=== PATIENT | male | born 1970 | race African-American/Black ===

== ENCOUNTER 2018-03-25 16:26 | Inpatient (IN) | payer MEDICAID, OTHER ==
[~2018-03-25] VITALS: Ht 182.9 cm; Wt 93.0 kg
[~2018-03-25 16:26] MED LIST: HYDROCHLOROTHIAZIDE; LISINOPRIL; NORVASC
[2018-03-25] MEDS ORDERED: AMLODIPINE 10MG TABLET PO ONE (18:15)
[2018-03-25 19:09] LABS: BASOPHILS % 0.6 % (0.0-2.0); CHLORIDE 104 mEq/L (98-107); EOSINOPHILS % 1.6 % (0.0-5.0); HEMATOCRIT. 41.6 % (42.0-52.0); HEMOGLOBIN. 14.2 g/dL (14.0-18.0); LYMPHOCYTES % 22.6 % (20.0-50.0); MEAN CORPUSCULAR HEMOGLOBIN 32.6 pg (28.0-32.0); MEAN CORPUSCULAR VOLUME 95.4 fL (80.0-94.0); MEAN PLATELET VOLUME 8.7 fl (7.4-10.4); MONOCYTES % 6.8 % (2.0-8.0); NEUTROPHILS % 68.4 % (40.0-76.0); PLATELET 291 x1000/uL (130-400); RED BLOOD CELL COUNT 4.36 mill/uL (4.7-6.1); RED CELL DISTRIBUTION WIDTH 12.7 % (11.6-14.6)
[2018-03-25] MEDS ORDERED: HYDRALAZINE 20MG/ML VIAL IV ONE (20:30)
[2018-03-25] MEDS ORDERED: IBUPROFEN 600MG TABLET PO ONE (21:00)
[2018-03-26] VITALS (10 sets, daily range): BP systolic 139–174; BP diastolic 88–117
[2018-03-26] MEDS: CLONIDINE 0.2MG TABLET PO PRN ×2 (05:35→13:50)
[2018-03-26] MEDS ORDERED: NIFEDIPINE XL 60MG TAB PO SCH ×2 (09:15→21:00)
[2018-03-26] MEDS ORDERED: ONDANSETRON HCL 4MG/2ML INJ IV PRN (09:15)
[2018-03-26] MEDS ORDERED: ENOXAPARIN 40MG/0.4ML SYR SUBCUT SCH (09:15)
[2018-03-26] MEDS ORDERED: ACETAMINOPHEN 325MG TABLET PO PRN (09:15)
[2018-03-26 10:57] LABS: BASOPHILS % 0.5 % (0.0-2.0); EOSINOPHILS % 1.2 % (0.0-5.0); HEMATOCRIT. 38.4 % (42.0-52.0); HEMOGLOBIN. 13.1 g/dL (14.0-18.0); LYMPHOCYTES % 20.7 % (20.0-50.0); MEAN CORPUSCULAR HEMOGLOBIN 32.5 pg (28.0-32.0); MEAN CORPUSCULAR VOLUME 94.7 fL (80.0-94.0); MONOCYTES % 7.5 % (2.0-8.0); NEUTROPHILS % 70.1 % (40.0-76.0); PLATELET 261 x1000/uL (130-400); RED BLOOD CELL COUNT 4.05 mill/uL (4.7-6.1); RED CELL DISTRIBUTION WIDTH 12.6 % (11.6-14.6)
[2018-03-26] MEDS ORDERED: HYDRALAZINE HCL 100MG TABLET PO SCH ×2 (12:00→14:00)
[2018-03-26] MEDS ORDERED: POTASSIUM CHLORIDE 20MEQ TABLET SR PO SCH (12:30)
== END 2018-03-26 18:45 | disposition home or self-care (01) | DRG 199 ==
LOC: ER 17:16 → 5EST 20:39 → ENRESERV 03-26 04:55
PROVIDERS: ADMIT Internal Medicine; ATTEND Internal Medicine
DX: I16.0 Hypertensive urgency (principal); N18.3 Chronic kidney disease, stage 3 (moderate); L97.329 Non-pressure chronic ulcer of left ankle with unspecified severity; E87.6 Hypokalemia; I12.9 Hypertensive chronic kidney disease with stage 1 through stage 4 chronic kidney disease, or unspecified chronic kidney disease; L97.919 Non-pressure chronic ulcer of unspecified part of right lower leg with unspecified severity; R73.03 Prediabetes; Z86.73 Personal history of transient ischemic attack (TIA), and cerebral infarction without residual deficits
CPT/HCPCS: 36415; 71045; 80048; 80061; 83036; 84443; 93005; 93306; 93922; 96374; 99291; J0360; J1650

== ENCOUNTER 2018-04-13 06:44 | Inpatient (IN) | payer MEDICAID, OTHER ==
[~2018-04-13] VITALS: Ht 182.9 cm; Wt 93.0 kg
[2018-04-13 08:32] LABS: BASOPHILS % 0.6 % (0.0-2.0); EOSINOPHILS % 1.4 % (0.0-5.0); HEMATOCRIT. 37.9 % (42.0-52.0); HEMOGLOBIN. 13.2 g/dL (14.0-18.0); LYMPHOCYTES % 20.9 % (20.0-50.0); MEAN CORPUSCULAR HEMOGLOBIN 32.9 pg (28.0-32.0); MEAN CORPUSCULAR VOLUME 94.3 fL (80.0-94.0); MEAN PLATELET VOLUME 7.6 fl (7.4-10.4); MONOCYTES % 10.4 % (2.0-8.0); NEUTROPHILS % 66.7 % (40.0-76.0); PLATELET 318 x1000/uL (130-400); RED BLOOD CELL COUNT 4.02 mill/uL (4.7-6.1); RED CELL DISTRIBUTION WIDTH 12.9 % (11.6-14.6)
[2018-04-13 08:34] LABS: CHLORIDE 101 mEq/L (98-107)
[2018-04-13] MEDS ORDERED: MORPHINE SULFATE 4 MG/ML CPJ (NOT FOR IM USE) IV ONE (09:00)
[2018-04-13] MEDS ORDERED: ASPIRIN 325MG EC TABLET PO ONE (09:00)
[2018-04-13] MEDS ORDERED: HYDRALAZINE 20MG/ML VIAL IV ONE (09:45)
[2018-04-13] MEDS ORDERED: HYDROMORPHONE HCL/PF 2MG/ML CPJ IV PRN (14:15)
[2018-04-13] MEDS ORDERED: AMLODIPINE 10MG TABLET PO NR (14:45)
[2018-04-13] MEDS ORDERED: CLONIDINE 0.1MG TABLET PO NR (16:30)
[2018-04-13] MEDS ORDERED: CLONIDINE 0.1MG TABLET PO PRN (17:15)
[2018-04-13] MEDS ORDERED: ONDANSETRON HCL 4MG/2ML INJ IV PRN (17:15)
[2018-04-13] MEDS ORDERED: ACETAMINOPHEN 325MG TABLET PO PRN (17:15)
[2018-04-13] MEDS ORDERED: GUAIFENESIN 200MG/10ML SUGAR FREE UDC PO PRN (17:15)
[2018-04-13] MEDS ORDERED: KETOROLAC 30MG/ML VIAL IV PRN (17:30)
[2018-04-13] MEDS ORDERED: HYDRALAZINE 20MG/ML VIAL IV PRN (22:12)
[2018-04-13] MEDS: HYDROMORPHONE HCL/PF 2MG/ML CPJ IV PRN (22:56)
[2018-04-13 23:26] VITALS: BP 177/103
[2018-04-14] MEDS: CLONIDINE 0.1MG TABLET PO SCH ×4 (00:26→22:23)
[2018-04-14] MEDS: NIFEDIPINE XL 60MG TAB PO SCH ×2 (00:26→08:39)
[2018-04-14] MEDS ORDERED: [UNRECOGNIZED DRUG - OTHER] PO (01:32)
[2018-04-14] MEDS ORDERED: LOSARTAN PO (01:32)
[2018-04-14] MEDS ORDERED: [UNRECOGNIZED DRUG - OTHER] PO (01:32)
[2018-04-14 04:00] VITALS: BP 146/89
[2018-04-14] MEDS: HYDRALAZINE HCL 100MG TABLET PO SCH ×2 (06:17→14:19)
[2018-04-14] MEDS: SODIUM CHLORIDE 0.9% INJ 3ML FLUSH IVF SCH ×3 (06:20→21:03)
[2018-04-14] MEDS: HYDROMORPHONE HCL/PF 2MG/ML CPJ IV PRN ×3 (06:20→21:03)
[2018-04-14] MEDS: OMEPRAZOLE 20MG CAPSULE EXTENDED RELEASE PO SCH ×2 (06:20→20:47)
[2018-04-14 08:00] VITALS: BP 145/88
[2018-04-14] MEDS: ASPIRIN 81MG EC TABLET PO SCH (08:39)
[2018-04-14] MEDS: AMLODIPINE 5MG TABLET PO SCH ×2 (08:39→20:47)
[2018-04-14] MEDS ORDERED: CLONIDINE 0.2MG TABLET PO PRN (09:59)
[2018-04-14] MEDS ORDERED: LIDOCAINE HCL 1% 10 MG/ML 10ML VIAL INL NR (11:00)
[2018-04-14 12:00] VITALS: BP 145/45
[2018-04-14 12:29] LABS: BASOPHILS % 0.3 % (0.0-2.0); EOSINOPHILS % 1.1 % (0.0-5.0); HEMATOCRIT. 35.5 % (42.0-52.0); HEMOGLOBIN. 12.3 g/dL (14.0-18.0); LYMPHOCYTES % 17.4 % (20.0-50.0); MEAN CORPUSCULAR HEMOGLOBIN 32.6 pg (28.0-32.0); MEAN CORPUSCULAR VOLUME 94.2 fL (80.0-94.0); MONOCYTES % 10.5 % (2.0-8.0); NEUTROPHILS % 70.7 % (40.0-76.0); PLATELET 304 x1000/uL (130-400); RED BLOOD CELL COUNT 3.77 mill/uL (4.7-6.1)
[2018-04-14] MEDS ORDERED: POTASSIUM CHLORIDE 20MEQ TABLET SR PO NR (14:00)
[2018-04-14 15:47] VITALS: BP 133/84
[2018-04-14 15:48] LABS: CLARITY URINE CLEAR (CLEAR); COLOR URINE YELLOW (YELLOW); KETONES URINE NEGATIVE (NEGATIVE); LEUKOCYTE ESTERASE URINE NEGATIVE (NEGATIVE); NITRITE URINE NEGATIVE (NEGATIVE); OCCULT BLOOD URINE NEGATIVE (NEGATIVE); PH URINE 5.5 (4.5-8.0); PROTEIN URINE 1+ (NEGATIVE); SPECIFIC GRAVITY URINE 1.021 (1.005-1.030); UROBILINOGEN URINE 0.2 E.U./dL (0.2-1.0)
[2018-04-14] MEDS: LOSARTAN POTASSIUM 100 MG TABLET PO SCH (15:50)
[2018-04-14 16:00] LABS: *AMPHETAMINES SCREEN URINE NEGATIVE (NEGATIVE); *BARBITURATES SCREEN URINE NEGATIVE (NEGATIVE); *BENZODIAZEPINES SCREEN URINE NEGATIVE (NEGATIVE); *COCAINE SCREEN URINE NEGATIVE (NEGATIVE); CANNABINOID URINE SCREEN NEGATIVE (NEGATIVE); METHADONE URINE SCREEN NEGATIVE (NEGATIVE); OPIATES URINE SCREEN PRESUMTIVE POSITIVE (NEGATIVE); PHENCYCLIDINE URINE SCREEN NEGATIVE (NEGATIVE)
[2018-04-14 20:30] VITALS: BP 134/67
[2018-04-15 00:42] VITALS: BP 150/90
[2018-04-15 04:00] VITALS: BP 146/92
[2018-04-15] MEDS: HYDROMORPHONE HCL/PF 2MG/ML CPJ IV PRN ×2 (04:49→09:37)
[2018-04-15] MEDS: SODIUM CHLORIDE 0.9% INJ 3ML FLUSH IVF SCH ×2 (05:59→13:13)
[2018-04-15] MEDS: CLONIDINE 0.1MG TABLET PO SCH ×2 (06:01→13:13)
[2018-04-15] MEDS: OMEPRAZOLE 20MG CAPSULE EXTENDED RELEASE PO SCH (06:33)
[2018-04-15 07:44] VITALS: BP 144/94
[2018-04-15] MEDS: AMLODIPINE 5MG TABLET PO SCH (08:06)
[2018-04-15] MEDS: ASPIRIN 81MG EC TABLET PO SCH (08:06)
[2018-04-15] MEDS: LOSARTAN POTASSIUM 100 MG TABLET PO SCH (08:06)
[2018-04-15 09:06] LABS: BASOPHILS % 0.4 % (0.0-2.0); EOSINOPHILS % 1.6 % (0.0-5.0); HEMATOCRIT. 36.5 % (42.0-52.0); HEMOGLOBIN. 12.4 g/dL (14.0-18.0); LYMPHOCYTES % 23.5 % (20.0-50.0); MEAN CORPUSCULAR HEMOGLOBIN 32.4 pg (28.0-32.0); MEAN CORPUSCULAR VOLUME 95.8 fL (80.0-94.0); MEAN PLATELET VOLUME 8.1 fl (7.4-10.4); MONOCYTES % 10.2 % (2.0-8.0); NEUTROPHILS % 64.3 % (40.0-76.0); PLATELET 288 x1000/uL (130-400); RED BLOOD CELL COUNT 3.81 mill/uL (4.7-6.1); RED CELL DISTRIBUTION WIDTH 13.1 % (11.6-14.6)
[2018-04-15 12:00] VITALS: BP 153/90
[2018-04-15] MEDS ORDERED: POTASSIUM CHLORIDE 20MEQ TABLET SR PO SCH (12:00)
[2018-04-15 15:50] VITALS: BP 140/85
[2018-04-15 15:59] VITALS: BP 140/85
[2018-04-17 09:10] LABS: COMPLEMENT C3 160 mg/dL (82-167)
[2018-04-17 15:10] LABS: ANA IFA Negative (.); ATYPICAL P-ANCA <1:20 titer (Neg:<1:20); CYTOPLASMIC C-ANCA <1:20 titer (Neg:<1:20); PERINUCLEAR P-ANCA <1:20 titer (Neg:<1:20)
[2018-04-18 14:11] LABS: ANTI-MYELOPEROXIDASE AB < 9.0 U/mL (0.0-9.0); ANTI-PROTEINASE 3 ABS < 3.5 U/mL (0.0-3.5)
== END 2018-04-15 17:34 | disposition home or self-care (01) | DRG 364 ==
LOC: ER 06:44 → 6WST 09:23 → ENRESERV 20:50
PROVIDERS: ADMIT Internal Medicine Nephrology; ATTEND Internal Medicine Nephrology
PROC: 0JBP0ZZ Excision of Left Lower Leg Subcutaneous Tissue and Fascia, Open Approach (ICD-10-PCS; principal; 2018-04-14)
PROC: 0KBW0ZZ Excision of Left Foot Muscle, Open Approach (ICD-10-PCS; 2018-04-14)
DX: L97.529 Non-pressure chronic ulcer of other part of left foot with unspecified severity (principal); N17.9 Acute kidney failure, unspecified; I13.10 Hypertensive heart and chronic kidney disease without heart failure, with stage 1 through stage 4 chronic kidney disease, or unspecified chronic kidney disease; I83.025 Varicose veins of left lower extremity with ulcer other part of foot; I16.0 Hypertensive urgency; E87.6 Hypokalemia; F12.90 Cannabis use, unspecified, uncomplicated; I87.2 Venous insufficiency (chronic) (peripheral); N18.9 Chronic kidney disease, unspecified; I87.8 Other specified disorders of veins; M20.42 Other hammer toe(s) (acquired), left foot; M20.41 Other hammer toe(s) (acquired), right foot; F17.210 Nicotine dependence, cigarettes, uncomplicated; I73.9 Peripheral vascular disease, unspecified; K21.9 Gastro-esophageal reflux disease without esophagitis; Z82.49 Family history of ischemic heart disease and other diseases of the circulatory system; Z86.73 Personal history of transient ischemic attack (TIA), and cerebral infarction without residual deficits; Z83.3 Family history of diabetes mellitus; Z87.11 Personal history of peptic ulcer disease; Z88.8 Allergy status to other drugs, medicaments and biological substances; Z91.011 Allergy to milk products
CPT/HCPCS: 36415; 71045; 76770; 80048; 80305; 83520; 83880; 83970; 84484; 85651; 86140; 86160; 86256; 93005; 93923; 96374; 96375; 97162; 99291; J0360; J1170; J2270; J3490

== ENCOUNTER 2018-06-19 02:11 | Inpatient (IN) | payer MEDICAID ==
[~2018-06-19] VITALS: Ht 188 cm; Wt 93.0 kg
[~2018-06-19 02:11] MED LIST changes: -HYDROCHLOROTHIAZIDE; -LISINOPRIL; +LOSARTAN PO; -NORVASC; +[UNRECOGNIZED DRUG - OTHER] PO; +[UNRECOGNIZED DRUG - OTHER] PO
[2018-06-19] MEDS ORDERED: MORPHINE SULFATE 4 MG/ML CPJ (NOT FOR IM USE) IV ONE (04:00)
[2018-06-19] MEDS ORDERED: ONDANSETRON HCL 4MG/2ML INJ IV ONE (04:00)
[2018-06-19 04:14] LABS: CLARITY URINE CLEAR (CLEAR); COLOR URINE YELLOW (YELLOW); KETONES URINE NEGATIVE (NEGATIVE); LEUKOCYTE ESTERASE URINE NEGATIVE (NEGATIVE); NITRITE URINE NEGATIVE (NEGATIVE); OCCULT BLOOD URINE NEGATIVE (NEGATIVE); PROTEIN URINE NEGATIVE (NEGATIVE)
[2018-06-19] MEDS ORDERED: HYDROMORPHONE HCL/PF 2MG/ML CPJ IV ONE (04:15)
[2018-06-19 04:17] LABS: CHLORIDE 101 mEq/L (98-107)
[2018-06-19 04:22] LABS: BASOPHILS % 0.4 % (0.0-2.0); EOSINOPHILS % 1.2 % (0.0-5.0); HEMOGLOBIN. 13.9 g/dL (14.0-18.0); LYMPHOCYTES % 17.5 % (20.0-50.0); MEAN CORPUSCULAR HEMOGLOBIN 33.3 pg (28.0-32.0); MEAN CORPUSCULAR VOLUME 93.7 fL (80.0-94.0); MEAN PLATELET VOLUME 7.7 fl (7.4-10.4); MONOCYTES % 9.8 % (2.0-8.0); NEUTROPHILS % 71.1 % (40.0-76.0); PLATELET 338 x1000/uL (130-400); RED BLOOD CELL COUNT 4.16 mill/uL (4.7-6.1); RED CELL DISTRIBUTION WIDTH 13.4 % (11.6-14.6)
[2018-06-19] MEDS ORDERED: VANCOMYCIN 1 G PREMIX 200 ML IV STA (05:42)
[2018-06-19] MEDS ORDERED: CLONIDINE 0.1MG TABLET PO ONE (07:00)
[2018-06-19 08:36] VITALS: BP 173/114
[2018-06-19] MEDS ORDERED: CLON0.1T14 MT (09:41)
[2018-06-19] MEDS ORDERED: CLONIDINE 0.1MG TABLET PO SCH (09:45)
[2018-06-19] MEDS ORDERED: METOPROLOL TARTRATE 25MG TABLET PO SCH (09:45)
[2018-06-19] MEDS ORDERED: AMLODIPINE 10MG TABLET PO SCH (09:45)
[2018-06-19] MEDS ORDERED: POTASSIUM CHLORIDE 20MEQ/PACKET PO SCH (09:45)
[2018-06-19 10:05] VITALS: BP 173/115
[2018-06-19 10:18] VITALS: BP_SYST 160; BP_SYST 173; BP_DIAS 114; BP_DIAS 99
[2018-06-19 11:11] LABS: ETHANOL BLOOD < 10 mg/dL
[2018-06-19 11:14] LABS: LDL CHOLESTEROL 140 mg/dL (5-100)
[2018-06-19 11:15] LABS: HDL CHOLESTEROL 55 mg/dL (40-59)
[2018-06-19 11:41] LABS: *AMPHETAMINES SCREEN URINE NEGATIVE (NEGATIVE); CANNABINOID URINE SCREEN NEGATIVE (NEGATIVE); OPIATES URINE SCREEN PRESUMTIVE POSITIVE (NEGATIVE); PHENCYCLIDINE URINE SCREEN NEGATIVE (NEGATIVE)
[2018-06-19 11:42] LABS: *BARBITURATES SCREEN URINE NEGATIVE (NEGATIVE); *BENZODIAZEPINES SCREEN URINE NEGATIVE (NEGATIVE); *COCAINE SCREEN URINE NEGATIVE (NEGATIVE); METHADONE URINE SCREEN NEGATIVE (NEGATIVE)
[2018-06-19 12:00] VITALS: BP 162/104
[2018-06-19] MEDS ORDERED: HYDRALAZINE HCL 50MG TABLET PO SCH (14:00)
[2018-06-19] MEDS ORDERED: CLONIDINE 0.2MG TABLET PO SCH (15:00)
[2018-06-19 16:00] VITALS: BP 169/107
== END 2018-06-19 17:12 | disposition home or self-care (01) | DRG 380 ==
LOC: ER 02:11 → 6EST 06:00 → ENRESERV 07:42
PROVIDERS: ADMIT Internal Medicine; ATTEND Internal Medicine
DX: L97.529 Non-pressure chronic ulcer of other part of left foot with unspecified severity (principal); E87.6 Hypokalemia; I12.9 Hypertensive chronic kidney disease with stage 1 through stage 4 chronic kidney disease, or unspecified chronic kidney disease; N18.9 Chronic kidney disease, unspecified; I87.8 Other specified disorders of veins; Z88.9 Allergy status to unspecified drugs, medicaments and biological substances; Z91.011 Allergy to milk products
CPT/HCPCS: 36415; 73630; 80061; 80305; 80320; 83036; 83605; 96374; 99285; J1170; J2270; J2405; J3370; G0480

== ENCOUNTER 2018-07-20 03:49 | Inpatient (IN) | payer MEDICAID ==
[~2018-07-20] VITALS: Ht 180.3 cm; Wt 93.4 kg
[~2018-07-20 03:49] MED LIST changes: +CLON0.1T14 MT
[2018-07-20] MEDS ORDERED: KETOROLAC 30MG/ML VIAL IV ONE ×2 (06:15→07:15)
[2018-07-20 06:34] LABS: BASOPHILS % 0.8 % (0.0-2.0); EOSINOPHILS % 1.3 % (0.0-5.0); HEMATOCRIT. 36.3 % (42.0-52.0); HEMOGLOBIN. 12.9 g/dL (14.0-18.0); LYMPHOCYTES % 19.8 % (20.0-50.0); MEAN CORPUSCULAR HEMOGLOBIN 32.9 pg (28.0-32.0); MEAN CORPUSCULAR VOLUME 92.4 fL (80.0-94.0); MEAN PLATELET VOLUME 7.6 fl (7.4-10.4); MONOCYTES % 9.4 % (2.0-8.0); NEUTROPHILS % 68.7 % (40.0-76.0); PLATELET 303 x1000/uL (130-400); RED BLOOD CELL COUNT 3.93 mill/uL (4.7-6.1); RED CELL DISTRIBUTION WIDTH 12.6 % (11.6-14.6)
[2018-07-20 06:39] LABS: CHLORIDE 103 mEq/L (98-107)
[2018-07-20 06:41] LABS: PROTHROMBIN TIME 10.3 sec (9.6-11.0)
[2018-07-20 06:43] LABS: CLARITY URINE CLEAR (CLEAR); COLOR URINE YELLOW (YELLOW); KETONES URINE NEGATIVE (NEGATIVE); LEUKOCYTE ESTERASE URINE NEGATIVE (NEGATIVE); NITRITE URINE NEGATIVE (NEGATIVE); OCCULT BLOOD URINE NEGATIVE (NEGATIVE); PROTEIN URINE TRACE (NEGATIVE); SPECIFIC GRAVITY URINE 1.017 (1.005-1.030)
[2018-07-20] MEDS ORDERED: POTASSIUM CHLORIDE 20MEQ TABLET SR PO ONE (07:00)
[2018-07-20] MEDS ORDERED: KCL 20MEQ/100ML PREMIX 100 ML IV ONE (07:00)
[2018-07-20] MEDS ORDERED: ONDANSETRON HCL 4MG/2ML INJ IV PRN (08:30)
[2018-07-20] MEDS ORDERED: DOCUSATE SODIUM 100MG CAPSULE PO PRN (08:30)
[2018-07-20] MEDS ORDERED: ACETAMINOPHEN 325MG TABLET PO PRN (08:30)
[2018-07-20] MEDS ORDERED: GUAIFENESIN 200MG/10ML SUGAR FREE UDC PO PRN (08:30)
[2018-07-20] MEDS ORDERED: IPRATROPIUM/ALBUTEROL 0.5-3(2.5)MG/3ML NEB INH PRN (08:30)
[2018-07-20] MEDS ORDERED: MAGNESIUM/ALUMINUM HYDROXIDE/SIMETHICONE 30ML UDC PO PRN (08:30)
[2018-07-20 08:45] LABS: ETHANOL BLOOD < 10 mg/dL
[2018-07-20 08:48] LABS: LDL CHOLESTEROL 125 mg/dL (5-100)
[2018-07-20 08:50] LABS: HDL CHOLESTEROL 46 mg/dL (40-59)
[2018-07-20] MEDS: AMLODIPINE 10MG TABLET PO SCH (09:00)
[2018-07-20] MEDS: ENOXAPARIN 40MG/0.4ML SYR SUBCUT SCH (10:00)
[2018-07-20] MEDS ORDERED: KCL 20MEQ/100ML PREMIX 100 ML IV NR (10:04)
[2018-07-20] MEDS: METOPROLOL TARTRATE 25MG TABLET PO SCH ×2 (12:55→20:37)
[2018-07-20] MEDS ORDERED: MINOXIDIL 10MG TABLET PO NR (13:37)
[2018-07-20 13:56] LABS: *AMPHETAMINES SCREEN URINE NEGATIVE (NEGATIVE); *BARBITURATES SCREEN URINE NEGATIVE (NEGATIVE); *BENZODIAZEPINES SCREEN URINE NEGATIVE (NEGATIVE); *COCAINE SCREEN URINE NEGATIVE (NEGATIVE); CANNABINOID URINE SCREEN NEGATIVE (NEGATIVE); PHENCYCLIDINE URINE SCREEN NEGATIVE (NEGATIVE)
[2018-07-20 13:57] LABS: METHADONE URINE SCREEN NEGATIVE (NEGATIVE); OPIATES URINE SCREEN NEGATIVE (NEGATIVE)
[2018-07-20] MEDS: HYDRALAZINE HCL 25MG TABLET PO SCH ×2 (14:29→21:19)
[2018-07-20] MEDS: FAMOTIDINE 20MG TABLET PO SCH ×2 (14:30→20:37)
[2018-07-20] MEDS ORDERED: HYDRALAZINE 20MG/ML VIAL IV ONE (14:45)
[2018-07-20] MEDS ORDERED: ACETAMINOPHEN 500MG TABLET PO ONE (14:45)
[2018-07-20 17:00] VITALS: BP 151/98
[2018-07-20] MEDS: KETOROLAC 15MG/ML VIAL IV PRN (18:27)
[2018-07-20] MEDS ORDERED: HYDR100T26 PO (19:24)
[2018-07-20] MEDS ORDERED: NIFE20CA PO (19:26)
[2018-07-20] MEDS ORDERED: CHLO50TA PO (19:26)
[2018-07-20] MEDS ORDERED: PANT40TA4 PO (19:26)
[2018-07-20 20:00] VITALS: BP 179/101
[2018-07-20] MEDS ORDERED: ZOLPIDEM TARTRATE 5MG TABLET PO PRN (21:00)
[2018-07-21] VITALS: BP 158/93
[2018-07-21] MEDS: KETOROLAC 15MG/ML VIAL IV PRN ×2 (01:41→09:01)
[2018-07-21] MEDS: CLONIDINE 0.1MG TABLET PO PRN ×2 (03:58→13:03)
[2018-07-21 04:00] VITALS: BP 176/101
[2018-07-21] MEDS: HYDRALAZINE HCL 25MG TABLET PO SCH ×2 (06:48→15:03)
[2018-07-21 08:00] VITALS: BP 178/102
[2018-07-21] MEDS ORDERED: MINOXIDIL 10MG TABLET PO SCH (09:00)
[2018-07-21] MEDS: AMLODIPINE 10MG TABLET PO SCH (09:00)
[2018-07-21] MEDS: FAMOTIDINE 20MG TABLET PO SCH (09:00)
[2018-07-21] MEDS: METOPROLOL TARTRATE 25MG TABLET PO SCH (09:00)
[2018-07-21] MEDS: ENOXAPARIN 40MG/0.4ML SYR SUBCUT SCH (09:01)
[2018-07-21] MEDS ORDERED: LIDOCAINE HCL 4% CREAM 76GM TUBE TP PRN (11:00)
[2018-07-21] MEDS ORDERED: LIDOCAINE HCL/PF 1% 10 MG/ML 30ML VIAL INFIL NR (11:00)
[2018-07-21] MEDS ORDERED: LIDOCAINE HCL 1% 20ML VIAL (Pyxis) INJ INFIL NR (11:22)
[2018-07-21 12:26] VITALS: BP 163/92
[2018-07-21] MEDS ORDERED: HYDROMORPHONE HCL/PF 2MG/ML CPJ IV NR (13:30)
[2018-07-21 15:39] VITALS: BP 159/86
[2018-07-21 15:49] VITALS: BP 153/83
== END 2018-07-21 16:55 | disposition home or self-care (01) | DRG 951 ==
LOC: ER 03:49 → 5WST 07:56 → EDBEDREQ 07:59 → ENRESERV 11:39 → 5WST 18:21
PROVIDERS: ADMIT Internal Medicine; ATTEND Internal Medicine
PROC: 0KBW0ZZ Excision of Left Foot Muscle, Open Approach (ICD-10-PCS; principal; 2018-07-21)
PROC: 0JBR0ZZ Excision of Left Foot Subcutaneous Tissue and Fascia, Open Approach (ICD-10-PCS; 2018-07-21)
DX: I13.10 Hypertensive heart and chronic kidney disease without heart failure, with stage 1 through stage 4 chronic kidney disease, or unspecified chronic kidney disease (principal); N17.0 Acute kidney failure with tubular necrosis; I83.028 Varicose veins of left lower extremity with ulcer other part of lower leg; L97.529 Non-pressure chronic ulcer of other part of left foot with unspecified severity; E87.6 Hypokalemia; F12.90 Cannabis use, unspecified, uncomplicated; I87.2 Venous insufficiency (chronic) (peripheral); I87.8 Other specified disorders of veins; K21.9 Gastro-esophageal reflux disease without esophagitis; M20.40 Other hammer toe(s) (acquired), unspecified foot; N18.9 Chronic kidney disease, unspecified; Z86.73 Personal history of transient ischemic attack (TIA), and cerebral infarction without residual deficits; Z91.14 Patient's other noncompliance with medication regimen; Z87.11 Personal history of peptic ulcer disease; Z88.5 Allergy status to narcotic agent; Z88.8 Allergy status to other drugs, medicaments and biological substances; Z91.011 Allergy to milk products; Z79.899 Other long term (current) drug therapy
CPT/HCPCS: 36415; 71045; 73630; 73718; 80048; 80061; 80305; 80320; 83036; 93005; 93923; 93970; J0360; J1170; J1650; J1885; J3480; J3490; G0480

== ENCOUNTER 2019-03-10 18:01 | Emergency (ER) | payer MEDICAID ==
[~2019-03-10] VITALS: Ht 182.9 cm; Wt 95.0 kg
[~2019-03-10 18:01] MED LIST changes: +HYDR100T26 PO; -LOSARTAN PO; +NIFE20CA PO; +PANT40TA4 PO; -[UNRECOGNIZED DRUG - OTHER] PO; -[UNRECOGNIZED DRUG - OTHER] PO
[2019-03-10] MEDS ORDERED: SULFAMETHOXAZOLE/TRIMETHOPRIM 800/160MG TABLET PO ONE (21:15)
[2019-03-10] MEDS ORDERED: GABAPENTIN 300MG CAPSULE PO ONE (21:15)
[2019-03-10] MEDS ORDERED: CEPHALEXIN 250MG CAPSULE PO ONE (21:15)
[2019-03-10] MEDS ORDERED: TRAMADOL 50MG TABLET PO ONE (21:15)
[2019-03-10] MEDS ORDERED: CLONIDINE 0.2MG TABLET PO ONE (21:15)
[2019-03-10] MEDS ORDERED: NIFEDIPINE XL 30MG TAB PO ONE (23:00)
[2019-03-11] MEDS ORDERED: HYDROCODONE/APAP 7.5/325MG 1 TAB TABLET PO ONE (00:30)
[2019-03-11] MEDS ORDERED: HYDRALAZINE HCL 100MG TABLET PO ONE (00:30)
[2019-03-11 02:25] VITALS: BP 183/125
== END 2019-03-11 02:33 | disposition home or self-care (01) ==
LOC: ER 18:01
DX: L97.829 Non-pressure chronic ulcer of other part of left lower leg with unspecified severity (principal); L97.819 Non-pressure chronic ulcer of other part of right lower leg with unspecified severity; L08.9 Local infection of the skin and subcutaneous tissue, unspecified; F12.10 Cannabis abuse, uncomplicated; I10 Essential (primary) hypertension; Z88.5 Allergy status to narcotic agent; Z88.8 Allergy status to other drugs, medicaments and biological substances; Z91.011 Allergy to milk products
CPT/HCPCS: 99284; Z7610

== ENCOUNTER 2024-09-11 16:30 | Emergency (ER) | payer MEDICAID, OTHER ==
[~2024-09-11] VITALS: Ht 177.8 cm; Wt 88.0 kg
[~2024-09-11 16:30] MED LIST changes: +HYDR100T11 PO; -HYDR100T26 PO; -NIFE20CA PO; +NIFE20CA8 PO; -PANT40TA4 PO; +PANT40TA51 PO
[2024-09-11 16:36] VITALS: O2SAT 99
[2024-09-11] MEDS ORDERED: KETOROLAC 30MG/ML VIAL IM ONE (18:00)
[2024-09-11 19:45] LABS: BASOPHILS % 0.4 % (0.0-2.0); EOSINOPHILS % 1.7 % (0.0-5.0); HEMATOCRIT. 40.1 % (42.0-52.0); HEMOGLOBIN. 13.7 g/dL (14.0-18.0); LYMPHOCYTES % 10.8 % (20.0-50.0); MEAN PLATELET VOLUME 7.7 fl (7.4-10.4); MONOCYTES % 12.0 % (2.0-8.0); NEUTROPHILS % 75.1 % (40.0-76.0); PLATELET 255 x1000/uL (130-400); RED BLOOD CELL COUNT 4.21 mill/uL (4.7-6.1); RED CELL DISTRIBUTION WIDTH 13.3 % (11.6-14.6)
[2024-09-11 19:50] LABS: CREATININE 2.4 mg/dL (0.6-1.3); UREA NITROGEN BLOOD 39.0 mg/dL (9-23)
[2024-09-11] MEDS: KETOROLAC 30MG/ML VIAL IM SCH (19:50)
[2024-09-11] MEDS ORDERED: ACET-2708 MT (21:04)
[2024-09-11 21:35] VITALS: BP 230/133; PULSE 73; RESP 19; TEMP 37.4; O2SAT 97
[2024-09-11] MEDS: HYDRALAZINE HCL 100MG TABLET PO ONE (22:09)
== END 2024-09-11 21:50 | disposition home or self-care (01) ==
LOC: ER 16:30
DX: M79.604 Pain in right leg (principal); F12.10 Cannabis abuse, uncomplicated; I10 Essential (primary) hypertension; Z88.5 Allergy status to narcotic agent; Z88.8 Allergy status to other drugs, medicaments and biological substances; Z79.899 Other long term (current) drug therapy; Z98.890 Other specified postprocedural states
CPT/HCPCS: 99285; 93971; 80048; 84550; 85025; 36415; 73562; 73630; 96372; J1885